=== PATIENT | male | born 1940 | race Caucasian/White ===

== ENCOUNTER 2017-02-09 08:00 | Day surgery (SDC) | payer BC, MEDICARE ==
[~2017-02-09] VITALS: Ht 180.3 cm; Wt 78.6 kg
[2017-02-09 08:35] VITALS: BP 161/94; PULSE 81; TEMP 97.4
[2017-02-09] MEDS ORDERED: ZOCOR 40MG40 MG PO (08:48)
[2017-02-09] MEDS ORDERED: PRIL40 PO (08:48)
[2017-02-09] MEDS ORDERED: NORVASC 5MG5 MG/TAB PO (08:49)
[2017-02-09] MEDS ORDERED: KLONOPIN 0.5MG0.5 MG PO (08:50)
[2017-02-09] MEDS ORDERED: PREDNISONE20 MG PO (08:51)
[2017-02-09] MEDS ORDERED: BIAXIN 500MG T500 MG PO (08:52)
[2017-02-09] MEDS ORDERED: PROAIR HFA0.09 MG/AC IH (08:53)
[2017-02-09] MEDS ORDERED: COMBIRESP IH (08:54)
[2017-02-09] MEDS ORDERED: FLONASEALLERGY NS (08:54)
[2017-02-09] MEDS ORDERED: AMOXICILLIN 8751 TAB PO (08:55)
[2017-02-09] MEDS ORDERED: BANOPHEN25 M1 PO (08:57)
[2017-02-09 10:20] VITALS: BP 145/72; PULSE 93; TEMP 97.6
[2017-02-09] MEDS ORDERED: LIPITOR 10MG10 MG PO (10:31)
[2017-02-09] MEDS ORDERED: COZAAR 25MG25 MG/TAB PO (10:31)
[2017-02-09 10:35] VITALS: BP 146/69; PULSE 89
[2017-02-09 10:50] VITALS: BP 151/87; PULSE 89
[2017-02-09 10:55] VITALS: BP 137/77; PULSE 98
== END 2017-02-09 11:20 | disposition home or self-care (01) ==
LOC: SDCO 08:00
DX: J18.9 Pneumonia, unspecified organism (principal)
CPT/HCPCS: J1956; J2270; J2704; J2920; J7120

== ENCOUNTER 2017-03-11 08:59 | Day surgery (SDC) | payer BC ==
[~2017-03-11] VITALS: Ht 180.3 cm; Wt 77.0 kg
[~2017-03-11 08:59] MED LIST: AMOXICILLIN 8751 TAB PO; BANOPHEN25 M1 PO; BIAXIN 500MG T500 MG PO; COMBIRESP IH; COZAAR 25MG25 MG/TAB PO; FLONASEALLERGY NS; KLONOPIN 0.5MG0.5 MG PO; LIPITOR 10MG10 MG PO; NORVASC 5MG5 MG/TAB PO; PREDNISONE20 MG PO; PRIL40 PO; PROAIR HFA0.09 MG/AC IH; ZOCOR 40MG40 MG PO
[2017-03-11 09:38] VITALS: BP 140/89; PULSE 85; TEMP 97.8
[2017-03-11] MEDS ORDERED: SINGULAIR 110 MG/TAB PO (09:49)
[2017-03-11] MEDS ORDERED: ATROVENT I0.2 MG/1 M IH (09:50)
[2017-03-11 10:35] VITALS: BP 150/69; PULSE 94
[2017-03-11 10:50] VITALS: BP 137/77; PULSE 95
[2017-03-11 11:05] VITALS: BP 114/84; PULSE 96
[2017-03-11 11:20] VITALS: BP 117/57; PULSE 95
== END 2017-03-11 12:10 | disposition home or self-care (01) ==
LOC: SDCO 08:59
DX: R05 Cough (principal); G47.33 Obstructive sleep apnea (adult) (pediatric); J44.9 Chronic obstructive pulmonary disease, unspecified; Z87.891 Personal history of nicotine dependence; Z79.899 Other long term (current) drug therapy; Z79.52 Long term (current) use of systemic steroids
CPT/HCPCS: J0456; J2704; J2920; J7050; J7120

== ENCOUNTER 2017-03-15 05:18 | Day surgery (SDC) | payer BC ==
[~2017-03-15] VITALS: Ht 180.3 cm; Wt 76.8 kg
[2017-03-15] VITALS (12 sets, daily range): BP systolic 127–155; BP diastolic 74–85; PULSE 74–98; TEMP 97.4–97.6
[~2017-03-15 05:18] MED LIST changes: +ATROVENT I0.2 MG/1 M IH; +SINGULAIR 110 MG/TAB PO
[2017-03-16 01:22] VITALS: BP 157/83; PULSE 96; TEMP 97.7
[2017-03-16 05:48] VITALS: BP 142/79; PULSE 83; TEMP 98.2
[2017-03-16] MEDS ORDERED: NORCO 325 MG-51 TAB PO (08:33)
== END 2017-03-16 10:41 | disposition home or self-care (01) ==
LOC: SDCO 05:18 → SURG 05:18 → SDCO 07:30 → SURG 09:50 → SDCO 03-16 10:41
DX: K21.0 Gastro-esophageal reflux disease with esophagitis (principal); K44.9 Diaphragmatic hernia without obstruction or gangrene; R05 Cough; E78.5 Hyperlipidemia, unspecified; I10 Essential (primary) hypertension; Z85.46 Personal history of malignant neoplasm of prostate; Z85.3 Personal history of malignant neoplasm of breast; G47.33 Obstructive sleep apnea (adult) (pediatric)
CPT/HCPCS: OP; C1781; J0330; J1100; J1200; J2300; J2405; J2704; J2710; J7120

== ENCOUNTER 2017-03-22 18:22 | Emergency (ER) | payer BC, MEDICARE ==
[~2017-03-22] VITALS: Ht 180.3 cm; Wt 75.0 kg
[~2017-03-22 18:22] MED LIST changes: +NORCO 325 MG-51 TAB PO
[2017-03-22 18:25] VITALS: BP 105/83; PULSE 109; TEMP 98.2
[2017-03-22] MEDS ORDERED: PROAIR HFA0.09 MG/AC IH (18:43)
[2017-03-22] MEDS ORDERED: COMBIRESP IH (18:43)
[2017-03-22] MEDS ORDERED: BIAXIN 500MG T500 MG PO (18:44)
[2017-03-22] MEDS ORDERED: LIPITOR 10MG10 MG PO (18:44)
[2017-03-22] MEDS ORDERED: FLONASEALLERGY NS (18:45)
[2017-03-22] MEDS ORDERED: COZAAR 25MG25 MG/TAB PO (18:46)
[2017-03-22] MEDS ORDERED: PRIL40 PO (18:46)
[2017-03-22] MEDS ORDERED: SINGULAIR 110 MG/TAB PO (18:46)
[2017-03-22] MEDS ORDERED: KLONOPIN 0.5MG0.5 MG PO (18:46)
[2017-03-23] MEDS ORDERED: NORCO 325 MG-51 TAB PO (08:43)
[2017-03-23] MEDS ORDERED: ATROVENT I0.2 MG/1 M IH (08:44)
== END 2017-03-22 20:03 | disposition home or self-care (01) ==
LOC: COL.ER 18:22
DX: J44.1 Chronic obstructive pulmonary disease with (acute) exacerbation (principal); K21.9 Gastro-esophageal reflux disease without esophagitis; Z87.891 Personal history of nicotine dependence
CPT/HCPCS: J1100

== ENCOUNTER 2017-03-23 07:51 | Day surgery (SDC) | payer BC, MEDICARE ==
[~2017-03-23] VITALS: Ht 180.3 cm; Wt 73.6 kg
[2017-03-23 08:31] VITALS: BP 129/79; PULSE 99; TEMP 98
[2017-03-23] MEDS ORDERED: NORCO 325 MG-51 TAB PO (08:43)
[2017-03-23] MEDS ORDERED: ATROVENT I0.2 MG/1 M IH (08:44)
[2017-03-23 09:31] LABS: INR 1.2 (0.8-3.0); PROTHROMBIN TIME 13.5 SECONDS (9.7-12.8)
[2017-03-23 09:55] VITALS: BP 124/74; PULSE 101
[2017-03-23 10:10] VITALS: BP 139/63; PULSE 106
[2017-03-23 10:33] VITALS: BP 128/70; PULSE 106
== END 2017-03-23 11:12 | disposition home or self-care (01) ==
LOC: SDCO 07:51
PROVIDERS: Internal Medicine Pulmonary Disease
DX: R04.2 Hemoptysis (principal); T17.990A Other foreign object in respiratory tract, part unspecified in causing asphyxiation, initial encounter; J98.11 Atelectasis; G47.33 Obstructive sleep apnea (adult) (pediatric); J32.4 Chronic pansinusitis; J44.9 Chronic obstructive pulmonary disease, unspecified; I10 Essential (primary) hypertension; Z87.891 Personal history of nicotine dependence; Z85.46 Personal history of malignant neoplasm of prostate
CPT/HCPCS: J0690; J2704; J2920; J7120

== ENCOUNTER 2017-04-09 23:39 | Emergency (ER) | payer BC ==
[~2017-04-09] VITALS: Ht 180.3 cm; Wt 79.5 kg
[2017-04-09 23:42] VITALS: BP 133/77; TEMP 97.6
[2017-04-10 00:34] LABS: BASO # 0.1 (0.0-0.2); BASO % 1.1 % (0.0-2.0); EOS % 14.4 % (0-4.0); GRAN # 3.2 (1.4-6.5); GRAN % 48.7 % (42.2-75.2); HEMOGLOBIN 13.5 g/dl (13.5-18.0); LYMPH # 1.8 (1.2-3.4); LYMPH % 26.6 % (20.0-51.0); MEAN CELL VOLUME 92 fl (80.0-100.0); MEAN CORPUSCULAR HEMOGLOBIN 32 pg (27.0-31.0); MEAN CORPUSCULAR HGB CONC 35 g/dl (33.0-37.0); MEAN PLATELET VOLUME 8.6 fl (7.4-10.4); MONO # 0.6 (0.1-0.6); MONO % 8.6 % (1.7-9.3); PLATELET COUNT 192 K/mm3 (130-400); RED BLOOD COUNT 4.23 M/mm3 (4.20-5.60); REDCELL DISTRIBUTION WIDTH-CV 13.9 % (11.5-14.5); WHITE BLOOD COUNT 6.6 K/mm3 (4.8-10.8)
[2017-04-10 00:48] LABS: ADJUSTED CALCIUM 9.1 mg/dL (8.4-10.2); ALANINE AMINOTRANSFERASE 45 U/L (21-72); ALBUMIN 3.6 gm/dL (3.5-5.0); ALKALINE PHOSPHATASE 101 U/L (50-136); ANION GAP 11 mmol/L (7-16); BILIRUBIN,TOTAL 1.4 mg/dL (0.0-1.0); BLOOD UREA NITROGEN 11 mg/dL (9-20); CALCIUM 8.8 mg/dL (8.4-10.2); CARBON DIOXIDE 24 mmol/L (22-30); CHLORIDE 105 mmol/L (98-107); CREATININE, serum 0.84 mg/dL (0.66-1.25); GLUCOSE 140 mg/dL (74-106); POTASSIUM 3.8 mmol/L (3.4-5.0); SODIUM 140 mmol/L (137-145); TOTAL PROTEIN 6.3 gm/dL (6.4-8.2)
[2017-04-10 00:59] LABS: B-TYPE NATRIURETIC PEPTIDE 32 pg/mL (0-450)
[2017-04-10] MEDS ORDERED: IPRATROPIUM BROM3 M1 IH (01:06)
[2017-04-10] MEDS ORDERED: FIBER0.52 GM PO (01:16)
[2017-04-10] MEDS ORDERED: BANOPHEN25 M1 PO (01:17)
[2017-04-10 01:26] LABS: TROPONIN-I < 0.012 ng/mL (0.000-0.034)
[2017-04-10] MEDS ORDERED: PREDNISONE10 MG PO (02:17)
[2017-04-10 02:38] VITALS: PULSE 88
== END 2017-04-10 02:38 | disposition home or self-care (01) ==
LOC: COL.ER 23:39
PROVIDERS: Emergency Medicine
DX: J44.0 Chronic obstructive pulmonary disease with (acute) lower respiratory infection (principal); J20.9 Acute bronchitis, unspecified; I10 Essential (primary) hypertension
CPT/HCPCS: J7512

== ENCOUNTER → 2018-01-06 | Outpatient (CLI) | payer BC ==
[~2018-01-06] MED LIST changes: +FIBER0.52 GM PO; +IPRATROPIUM BROM3 M1 IH; +PREDNISONE10 MG PO
== END ==
LOC: COL.RAD 07:51
DX: K21.9 Gastro-esophageal reflux disease without esophagitis (principal); R14.0 Abdominal distension (gaseous); R10.9 Unspecified abdominal pain; R19.7 Diarrhea, unspecified
CPT/HCPCS: A9541

== ENCOUNTER → 2018-01-16 | Outpatient (CLI) | payer BC ==
[~2018-01-16] VITALS: Ht 180.3 cm; Wt 73.0 kg
[~2018-01-16] MED LIST changes: +LIORESAL 1010 MG/TAB PO; +MUCINEX D1 TER PO; +POTASSIUM IODID PO; +PULMICORT0.5 MG/2 M IH; +REFRESH OPTIVE10 M2 OP
[2018-01-16 14:46] VITALS: BP 118/65; PULSE 78; TEMP 97.9
== END ==
LOC: EUO 14:29
DX: D72.1 Eosinophilia (principal); J45.909 Unspecified asthma, uncomplicated; Z79.899 Other long term (current) drug therapy
CPT/HCPCS: J2182

== ENCOUNTER 2018-02-13 14:37 | Outpatient (CLI) | payer BC ==
[~2018-02-13] VITALS: Ht 180.3 cm; Wt 72.0 kg
[2018-02-13 15:20] VITALS: BP 125/59; PULSE 81; TEMP 98.6
== END 2018-02-13 16:09 | disposition home or self-care (01) ==
LOC: EUO 14:37
DX: D72.1 Eosinophilia (principal); J45.909 Unspecified asthma, uncomplicated; Z79.899 Other long term (current) drug therapy
CPT/HCPCS: J2182

== ENCOUNTER 2018-03-20 14:36 | Outpatient (CLI) | payer BC ==
[~2018-03-20] VITALS: Ht 180.3 cm; Wt 72.9 kg
[2018-03-20] MEDS ORDERED: ATROVENTNS0.03% NS (15:00)
[2018-03-20] MEDS ORDERED: PROTONIX20 MG PO (15:00)
[2018-03-20] MEDS ORDERED: MIRALAX PA17 GM/Dose PO (15:04)
[2018-03-20 15:20] VITALS: BP 121/56; PULSE 72; TEMP 98.6
== END 2018-03-20 16:02 | disposition home or self-care (01) ==
LOC: EUO 14:36
DX: D72.1 Eosinophilia (principal); J45.909 Unspecified asthma, uncomplicated; Z79.899 Other long term (current) drug therapy
CPT/HCPCS: J2182

== ENCOUNTER → 2018-05-15 | Outpatient (CLI) | payer BC ==
[~2018-05-15] MED LIST changes: +ATROVENTNS0.03% NS; +MIRALAX PA17 GM/Dose PO; +PROTONIX20 MG PO
[2018-05-15 13:42] VITALS: BP 110/72; PULSE 68; TEMP 97.7
== END ==
LOC: EUO 12:59
DX: D72.1 Eosinophilia (principal); J45.909 Unspecified asthma, uncomplicated
CPT/HCPCS: J2182

== ENCOUNTER 2018-06-12 12:18 | Outpatient (CLI) | payer BC ==
[~2018-06-12] VITALS: Ht 180.3 cm; Wt 73.0 kg
[2018-06-12 12:52] VITALS: BP 122/67; PULSE 72; TEMP 97.9
== END 2018-06-12 13:47 | disposition home or self-care (01) ==
LOC: EUO 12:18
DX: D72.1 Eosinophilia (principal); Z79.899 Other long term (current) drug therapy
CPT/HCPCS: J2182

== ENCOUNTER 2019-02-06 12:51 | Outpatient (CLI) | payer BC ==
[~2019-02-06] VITALS: Ht 180.3 cm; Wt 69.9 kg
[2019-02-06 13:27] VITALS: BP 145/58; PULSE 77; TEMP 97.9
== END 2019-02-06 13:28 | disposition home or self-care (01) ==
LOC: EUO 12:51
DX: Z79.899 Other long term (current) drug therapy (principal)

== ENCOUNTER 2019-03-06 12:46 | Outpatient (CLI) | payer BC ==
[~2019-03-06] VITALS: Ht 180.3 cm; Wt 72.5 kg
[2019-03-06 12:56] VITALS: BP 146/83; PULSE 58; TEMP 97.6
== END 2019-03-06 16:00 ==
LOC: EUO 12:46 → EDSTATUS 13:00 → EUO 16:00
DX: Z79.899 Other long term (current) drug therapy (principal)

== ENCOUNTER 2019-04-03 12:58 | Outpatient (CLI) | payer BC ==
[~2019-04-03] VITALS: Ht 180.3 cm; Wt 73.0 kg
[2019-04-03] MEDS ORDERED: MOBIC15 MG PO (13:19)
[2019-04-03] MEDS ORDERED: THIAMINE I200 MG/2 M IJ (13:21)
[2019-04-03] MEDS ORDERED: TRELEGY ELLIPT1 EACH IH (13:21)
[2019-04-03] MEDS ORDERED: CRESTOR20 MG PO (13:22)
[2019-04-03] MEDS ORDERED: K-TAB20 PO (13:23)
[2019-04-03] MEDS ORDERED: LASIX 20MG TABL20 MG PO (13:23)
[2019-04-03] MEDS ORDERED: STOOL SOFTENER100 M2 PO (13:24)
[2019-04-03] MEDS ORDERED: PRILOSEC 20MG20 MG PO (13:24)
[2019-04-03] MEDS ORDERED: ASPIRIN 81M81 MG/TA2 PO (13:25)
[2019-04-03 13:30] VITALS: BP 156/62; PULSE 62; TEMP 97.9
== END 2019-04-03 13:30 | disposition home or self-care (01) ==
LOC: EUO 12:58
DX: Z79.899 Other long term (current) drug therapy (principal)

== ENCOUNTER 2019-05-24 10:17 | Outpatient (CLI) | payer BC ==
[~2019-05-24] VITALS: Ht 180.3 cm; Wt 73.3 kg
[~2019-05-24 10:17] MED LIST changes: +ASPIRIN 81M81 MG/TA2 PO; +CRESTOR20 MG PO; +K-TAB20 PO; +LASIX 20MG TABL20 MG PO; +MOBIC15 MG PO; +PRILOSEC 20MG20 MG PO; +STOOL SOFTENER100 M2 PO; +THIAMINE I200 MG/2 M IJ; +TRELEGY ELLIPT1 EACH IH
[2019-05-24 10:25] VITALS: BP 146/68; PULSE 69; TEMP 98.2
== END 2019-05-24 11:30 | disposition home or self-care (01) ==
LOC: EUO 10:17 → EDSTATUS 11:00 → EUO 11:00
DX: J45.50 Severe persistent asthma, uncomplicated (principal); Z79.899 Other long term (current) drug therapy

== ENCOUNTER 2019-07-19 13:36 | Outpatient (CLI) | payer BC ==
[~2019-07-19] VITALS: Ht 180.3 cm; Wt 73.9 kg
[2019-07-19 14:12] VITALS: BP 128/77; PULSE 86; TEMP 98.4
[2019-07-19] MEDS ORDERED: LIPITOR20 MG PO (14:31)
== END 2019-07-19 14:55 | disposition home or self-care (01) ==
LOC: EUO 13:36
DX: Z79.899 Other long term (current) drug therapy (principal)

== ENCOUNTER → 2019-12-21 | Outpatient (CLI) | payer BC ==
[~2019-12-21] MED LIST changes: +LIPITOR20 MG PO
== END ==
LOC: COL.RAD 09:42
DX: K82.8 Other specified diseases of gallbladder (principal)
CPT/HCPCS: A9537; J2805